=== PATIENT | female | born 1985 | race African-American/Black ===

== ENCOUNTER 2019-08-10 00:54 | Emergency (ER) | payer MEDICAID, MEDICARE ==
[~2019-08-10] VITALS: Ht 175.3 cm; Wt 86.0 kg
[2019-08-10 02:04] LABS: BASOPHILS % 0.5 % (0.0-2.0); EOSINOPHILS % 2.3 % (0.0-5.0); HEMATOCRIT. 37.3 % (36.0-48.0); HEMOGLOBIN. 12.9 g/dL (12.0-16.0); LYMPHOCYTES % 40.3 % (20.0-50.0); MEAN CORPUSCULAR VOLUME 92.8 fL (81.0-99.0); MONOCYTES % 7.1 % (2.0-8.0); NEUTROPHILS % 49.8 % (40.0-76.0); PLATELET 252 x1000/uL (130-400); RED BLOOD CELL COUNT 4.02 mill/uL (4.2-5.4); RED CELL DISTRIBUTION WIDTH 13.8 % (11.6-14.6)
[2019-08-10 02:06] LABS: CHLORIDE 114 mEq/L (98-107)
[2019-08-10 02:11] LABS: ETHANOL BLOOD < 10 mg/dL
[2019-08-10 02:27] LABS: HCG SCREEN NEGATIVE
[2019-08-10] MEDS ORDERED: LORAZEPAM 1MG TABLET PO ONE (02:30)
[2019-08-10 02:38] LABS: *BARBITURATES SCREEN URINE NEGATIVE (NEGATIVE); *BENZODIAZEPINES SCREEN URINE NEGATIVE (NEGATIVE); *COCAINE SCREEN URINE NEGATIVE (NEGATIVE); METHADONE URINE SCREEN NEGATIVE (NEGATIVE); OPIATES URINE SCREEN NEGATIVE (NEGATIVE)
[2019-08-10 02:39] LABS: PHENCYCLIDINE URINE SCREEN NEGATIVE (NEGATIVE)
[2019-08-10 02:41] LABS: *AMPHETAMINES SCREEN URINE PRESUMTIVE POSITIVE (NEGATIVE); CANNABINOID URINE SCREEN PRESUMTIVE POSITIVE (NEGATIVE)
[2019-08-11 10:00] VITALS: BP 110/50
== END 2019-08-11 10:40 | disposition home or self-care (01) ==
LOC: ER 00:54
DX: F29 Unspecified psychosis not due to a substance or known physiological condition (principal); F41.9 Anxiety disorder, unspecified; F31.9 Bipolar disorder, unspecified; Z98.890 Other specified postprocedural states
CPT/HCPCS: 36415; 80053; 80305; 80320; 81025; 84703; 85025; 99283; Z7610; G0480

== ENCOUNTER 2019-08-21 19:40 | Emergency (ER) | payer MEDICARE ==
[~2019-08-21] VITALS: Ht 165.1 cm; Wt 72.0 kg
[2019-08-21 19:45] VITALS: BP 113/76
== END 2019-08-21 20:00 | disposition left against medical advice (07) ==
LOC: ER 19:40
DX: R55 Syncope and collapse (principal)
CPT/HCPCS: 93005; 99284